=== PATIENT | female | born 1965 | race Caucasian/White ===

== ENCOUNTER 2020-09-15 09:01 | Outpatient (CLI) | payer OTHER, SELFPAY ==
--- NOTE | ~2020-09-15 | DEXA_ITS ---
Bone Density Report Name: Terra Abad Age: 55 Sex: Female Ethnicity: White Date of : 1965 Indication: postmenopausal; Referring Provider: Zelalem Blnacas Study: Bone densitometry was performed. Exam Date: September 15, 2020 Accession number: [id number] Bone Density: Region BMD T-score Z-score Classification AP Spine (L1-L4) 1.142 0.9 1.8 Normal Femoral Neck (Left) 0.835 -0.1 0.8 Normal Total Hip (Left) 1.045 0.8 1.5 Normal Total Hip Bilateral Avg 1.058 0.9 1.6 Normal Femoral Neck (Right) 0.873 0.2 1.2 Normal Total Hip (Right) 1.070 1.0 1.7 Normal World Health Organization criteria for BMD impression classify patients as: Normal (T-score at or above -1.0), Osteopenia (T-score between -1.0 and -2.5), or Osteoporosis (T-score at or below -2.5). 10-year Fracture Risk: FRAX not reported because: All T-scores for Spine Total, Hip Total, Femoral Neck at or above -1.0 Impression: The patient has normal bone mass. Discussion: BONE DENSITY IS ABOVE THE MINIMUM DESIRABLE LEVEL AT ALL SKELETAL SITES TESTED. This patient?s bone mineral density is above the minimum desirable level (T-score -1.0 or better) at all sites measured. The patient should follow a healthful lifestyle (good nutrition with adequate calcium and vitamin D, and appropriate weight-bearing exercise). Follow-Up: Consider repeating this study in 5 years or sooner if there is some new clinical indication. Reported by: [facility] on 09/15/2020 9:39:00 AM. Reviewed, dictated and finalized at location Paresh LATIF
--- NOTE | ~2020-09-15 | MM_ITS ---
EXAMINATION: MM screening [facility] BI w michelle HISTORY: Screening mammogram TECHNIQUE: Craniocaudal and mediolateral oblique 3-D tomosynthesis images were obtained and synthetic 2-D images were generated. CAD analysis was submitted and interpreted. COMPARISON: 09/24/2017, 09/11/2016, 04/22/2015 BREAST PARENCHYMAL COMPOSITION: The breasts are heterogeneously dense, which may obscure small masses . FINDINGS: There is no evidence of suspicious mass, calcification, or architectural distortion to sugg est malignancy in either breast. There has been no suspicious interval change. IMPRESSION: 1. No mammographic evidence of malignancy. 2. Recommend routine screening mammography in one year. BI-RADS Category 1: Negative Reviewed, dictated and finalized at location A. STERED DIETITIAN
== END 2020-09-15 09:02 | disposition home or self-care (01) ==
PROVIDERS: PCP Family Medicine; Visit Provider Physician Assistant
DX: Z12.31 Encounter for screening mammogram for malignant neoplasm of breast (principal); Z78.0 Asymptomatic menopausal state
CPT/HCPCS: 77063; 77067; 77080

== ENCOUNTER → 2021-05-08 15:18 | Outpatient (CLI) | payer OTHER, SELFPAY ==
--- NOTE | ~2021-05-08 | XR_ITS ---
XR lumbar spine 2-3V DATE: 05/08/2021 16:30 INDICATION: Back pain, radiculopathy TECHNIQUE: Standing AP, lateral, coned lateral lumbosacral views COMPARISON: None FINDINGS: Diffuse osteopenia. There is mild dextro scoliosis of the lower thoracic and lumbar spine. There is moderate degenerative disc disease at L4-5 and mild degenerative disc disease at L3-4. No fracture or bone destruction or spondylolisthesis is evident. The included lower thoracic and lumb ar pedicles are intact. The sacroiliac joints appear normal. IMPRESSION: Osteopenia Scoliosis Mild degenerative disc disease at L3-4, moderate degenerative disc disease at L4-5 Reviewed, dictated and finalized at location B. IMPRESSION: Osteopenia Scoliosis Mild degenerative disc disease at L3-4, moderate degenerative disc disease at L 4-5
== END ==
PROVIDERS: Visit Provider Physician Assistant
DX: M54.16 Radiculopathy, lumbar region (principal); M85.88 Other specified disorders of bone density and structure, other site; M41.9 Scoliosis, unspecified; M51.36 Other intervertebral disc degeneration, lumbar region
CPT/HCPCS: 72100

== ENCOUNTER 2021-09-15 00:32 | Day surgery (SDC) | payer OTHER, SELFPAY ==
[2021-09-06 15:47] VITALS: BMI 25.9
[2021-09-15 07:04] VITALS: BP 105/73; PULSE 70; RESP 20; TEMP 36.6; O2SAT 97; BMI 25.3
--- NOTE | 2021-09-15 07:24 | WPDGICN ---
Assessment and Plan Assessment and plan (1) Family history of colonic polyps: Code(s): Z83.71 - Family history of colonic polyps Status: Acute Assessment and Plan: Patient has a family history of colon polyps in her sister. Plan is for surveillance colonoscopy now and consider this at intervals in the future. Fiber supplementation may be benefit is some of her symptoms suggest a component of irritable bowel syndrome. GI Consult Note Consult date/time: 09/15/21 07:24 HPI: Terra Abad is a 56 year old female Presents for screening colonoscopy. Patient reports that her current weight appetite and bowel movements are normal. She denies abdominal pain. She has had no bleeding. Family history is significant that her sister had a large colon polyp requiring surgical resection. Patient's last colonoscopy was performed in 2014 with no findings at that time. Patient presents today for surveillance exam. Patient does notice some irregular stools and urgency with bowel habits. Review of Systems Review of Systems: All systems reviewed & are unremarkable except as noted in HPI and below PMFSH Family History Family History Father Diabetes mellitus Family history of hypercholesterolemia Family history of glaucoma Hypertension Family history of cardiovascular disease Sibling Diabetes mellitus Depression Family history of glaucoma Colon polyp Alcoholism Mother Family history of osteoporosis Family history of hypercholesterolemia Family history of mental disorder Cerebrovascular accident Family history of chronic obstructive pulmonary disease Depression Thyroid disorder Grandparent Hypertension Family history of cardiovascular disease Other Asthma Other Family history of bipolar disorder Family history of schizophrenia Social History Social History Smoking status: Never smoker Smoking end date: 10/28/88 Alcohol intake: current Drinks per week: 6 Alcohol use details: wine Substance use: never Substance use type: does not use Living arrangements: with family Spiritual care concerns: No Meds Home Medications and Allergies Home Medications Medication Instructions Recorded Confirmed Type albuterol sulfate 90 mcg/actuation 2 puff INHALATION Q4H PRN g 08/26/20 09/06/21 History aerosol inhaler calcium carbonate 1,200 mg PO DAILY 09/06/21 09/15/21 History cetirizine [Zyrtec] 10 mg PO DAILY 09/06/21 09/15/21 History cholecalciferol (vitamin D3) 2,000 mcg PO DAILY 09/06/21 09/15/21 History [Vitamin D3] diphenhydramine HCl [Benadryl] 50 mg PO DAILY 09/06/21 09/06/21 History fluticasone furoate-vilanterol 1 inh INHALATION BID PRN 09/06/21 09/15/21 History [Breo Ellipta] multivit with min-folic acid 1 tablet PO DAILY 09/06/21 09/15/21 History [Adult One Daily Multivitamin] Allergies Allergy/AdvReac Type Severity Reaction Status Date / Time erythromycin base Allergy Unknown Unknown Verified 09/15/21 07:02 Vital Signs Vital Signs - 24 hr 09/15/21 07:04 Temperature 97.9 F Pulse Rate 70 Respiratory Rate 20 Blood Pressure 105/73 Pulse Oximetry 97 Exam Narrative: Physical exam reveals patient be alert. Vital signs stable. HEENT exam is unremarkable. Patient is anicteric. Lungs are clear to auscultation and percussion. Heart is without murmur or extra sounds. Abdominal exam bowel sounds are present soft nontender with no organomegaly. Digital external rectal exam is normal.
[2021-09-15] MEDS: LACTATED RINGERS 1,000 ML 150 ML IV CONT (07:28)
--- NOTE | 2021-09-15 07:54 | WPDANESEPPF ---
Anes - Initial Pre Proc Eval Procedure: Operation Date: 09/15/21 08:00 Proposed Procedures p Screening Colonoscopy - Luis Alberto Hernandez MD Date/Time: 09/15/21 07:54 Surgeon: Luis Alberto Hernandez MD Pre Op Diagnosis: family hx of polyps Patient Data Age: 56 Gender: F Height: 1.68 m Weight: 71.3 kg Last Vital Signs Temp 97.9 F 09/15/21 07:04 Pulse 70 09/15/21 07:04 Resp 20 09/15/21 07:04 BP 105/73 09/15/21 07:04 Pulse Ox 97 09/15/21 07:04 Allergies Allergy/AdvReac Type Severity Reaction Status Date / Time erythromycin base Allergy Unknown Unknown Verified 09/15/21 07:02 Home Medications Medication Instructions Recorded Confirmed Type albuterol sulfate 90 mcg/actuation 2 puff INHALATION Q4H PRN g 08/26/20 09/06/21 History aerosol inhaler calcium carbonate 1,200 mg PO DAILY 09/06/21 09/15/21 History cetirizine [Zyrtec] 10 mg PO DAILY 09/06/21 09/15/21 History cholecalciferol (vitamin D3) 2,000 mcg PO DAILY 09/06/21 09/15/21 History [Vitamin D3] diphenhydramine HCl [Benadryl] 50 mg PO DAILY 09/06/21 09/06/21 History fluticasone furoate-vilanterol 1 inh INHALATION BID PRN 09/06/21 09/15/21 History [Breo Ellipta] multivit with min-folic acid 1 tablet PO DAILY 09/06/21 09/15/21 History [Adult One Daily Multivitamin] Patient hx anesthesia problems: none Family hx anesthesia problems: none Results Review: All pre-operative results and documents have been reviewed as part of the pre-operative evaluation. [facility] Past Medical History Medical History (Updated 09/15/21 @ 07:53 by Shan Haley MD) Mild intermittent asthma Family History Family History Father Diabetes mellitus Family history of hypercholesterolemia Family history of glaucoma Hypertension Family history of cardiovascular disease Sibling Diabetes mellitus Depression Family history of glaucoma Colon polyp Alcoholism Mother Family history of osteoporosis Family history of hypercholesterolemia Family history of mental disorder Cerebrovascular accident Family history of chronic obstructive pulmonary disease Depression Thyroid disorder Grandparent Hypertension Family history of cardiovascular disease Other Asthma Other Family history of bipolar disorder Family history of schizophrenia Social History Social History Smoking status: Never smoker Smoking end date: 10/28/88 Alcohol intake: current Drinks per week: 6 Alcohol use details: wine Substance use: never Substance use type: does not use Living arrangements: with family Spiritual care concerns: No Anes - Eval Final PreProcedure Day of Procedure 09/15/21 07:54 Patient weight: normal Heart: regular rate and rhythm Lungs: clear to auscultation Airway: Mallampati scale class II Neurological: alert and oriented Last oral intake: >/= 8 hours ASA classification: II Emergent: no Anesthetic plan: proceed Anesthesia type and monitoring: general GIVS and standard monitoring Results Review: All pre-operative results and documents have been reviewed as part of the pre-operative evaluation. Informed Consent: The patient's anesthetic plan and its attendant risks and benefits were discussed with the patient/family/POA. Questions were solicited and answers provided to the satisfaction of the patient/family/POA.
[2021-09-15 08:17] VITALS: BP 93/64; PULSE 71; RESP 21; O2SAT 96
[2021-09-15 08:27] VITALS: BP 98/68; PULSE 57; RESP 18; O2SAT 98
[2021-09-15 08:37] VITALS: BP 106/73; PULSE 58; RESP 20; O2SAT 99
== END 2021-09-15 08:47 | disposition home or self-care (01) ==
PROVIDERS: PCP Family Medicine; Visit Provider Internal Medicine Gastroenterology
PROC: 0DJD8ZZ Inspection of Lower Intestinal Tract, Via Natural or Artificial Opening Endoscopic (ICD-10-PCS; CPT 45378; principal; 2021-09-15 08:00)
DX: Z12.11 Encounter for screening for malignant neoplasm of colon (principal); K62.1 Rectal polyp; Z83.71 Family history of colonic polyps; K64.8 Other hemorrhoids; K57.30 Diverticulosis of large intestine without perforation or abscess without bleeding; Z79.51 Long term (current) use of inhaled steroids; J45.20 Mild intermittent asthma, uncomplicated
CPT/HCPCS: 45380; 88305; J2704; J7120

== ENCOUNTER 2022-01-17 10:00 | Outpatient (CLI) | payer OTHER, SELFPAY ==
--- NOTE | ~2022-01-17 | MM_ITS ---
EXAMINATION: MM screening [facility] BI w michelle HISTORY: Screening mammogram TECHNIQUE: Craniocaudal and mediolateral oblique 3-D tomosynthesis images were obtained and synthetic 2-D images were generated. CAD analysis was submitted and interpreted. COMPARISON: 09/15/2020, 09/24/2017, 09/11/2016 bilateral screening mammogram examinations BREAST PARENCHYMAL COMPOSITION: The breasts are heterogeneously dense, which may obscure small masses . FINDINGS: There is focal asymmetry in the posterior lower inner quadrant of the right breast. Diagnos tic right mammogram and right breast ultrasound examination are recommended. Otherwise there is no evidence of suspicious mass, calcification, or architectural distortion to sugg est malignancy in either breast. There has been no other suspicious interval change. IMPRESSION: 1. Focal asymmetry in posterior lower inner right breast 2. Diagnostic right mammogram and right breast ultrasound examination are recommended BI-RADS Category 0: Incomplete: Needs additional imaging evaluation. Reviewed, dictated and finalized at location A. IMPRESSION: 1. Focal asymmetry in posterior lower inner right breast 2. Diagnostic right mammogram and right breast ultrasound examination are recom mended BI-RADS Category 0: Incomplete: Needs additional imaging evaluation.
== END 2022-01-17 10:01 | disposition home or self-care (01) ==
PROVIDERS: PCP Family Medicine; Visit Provider Family Medicine
DX: Z12.31 Encounter for screening mammogram for malignant neoplasm of breast (principal); R92.8 Other abnormal and inconclusive findings on diagnostic imaging of breast
CPT/HCPCS: 77063; 77067

== ENCOUNTER 2022-01-26 14:01 | Outpatient (CLI) | payer OTHER, SELFPAY ==
--- NOTE | ~2022-01-26 | MMUS_ITS ---
EXAMINATION: MM diagnostic [facility] RT w michelle, US breast RT limited HISTORY: Focal asymmetry of the right breast on screening mammogram TECHNIQUE: Additional 3-D tomosynthesis images of the right breast were performed and synthetic 2-D i mages were generated. CAD analysis was submitted and interpreted. High resolution limited right breas t ultrasound was performed. COMPARISON: 01/17/2022, 09/15/2020, 09/24/2017 BREAST PARENCHYMAL COMPOSITION: There are scattered areas of fibroglandular density. FINDINGS: MAMMOGRAPHIC FINDINGS: There is a return to baseline fibroglandular appearance with spot compression of the right breast in the area questioned on screening mammogram. ULTRASOUND: There is no evidence of focal abnormal solid or cystic mass in the vicinity of the mammographic findi ng in question. IMPRESSION: 1. No mammographic or sonographic evidence of malignancy. 2. Recommend routine screening mammography in one year. BI-RADS Category 1: Negative Reviewed, dictated and finalized at location A. IMPRESSION: 1. No mammographic or sonographic evidence of malignancy. 2. Recommend routine screening mammography in one year. BI-RADS Category 1: Negative
== END 2022-01-26 14:02 | disposition home or self-care (01) ==
LOC: ANHIMG 14:01
PROVIDERS: PCP Family Medicine; Visit Provider Family Medicine
DX: R92.8 Other abnormal and inconclusive findings on diagnostic imaging of breast (principal)
CPT/HCPCS: 76642; 77061; 77065; G0279

== ENCOUNTER 2022-08-17 15:22 | Outpatient (CLI) | payer OTHER, SELFPAY ==
[2022-08-17 19:46] LABS: Alanine Aminotransferase 24 U/L (6-35); Albumin Level 4.7 g/dL (3.5-5.1); Alkaline Phosphatase 83 U/L (38-126); Amylase 91 U/L (30-110); Anion Gap 14 mmol/L (8-16); Aspartate Amino Transferase 29 U/L (14-36); Basophils Absolute Auto 0.1 K/mm3 (0.0-0.1); Basophils Percent Auto 0.7 % (0.2-1.2); Bilirubin,Total 0.3 mg/dL (0.2-1.3); Blood Urea Nitrogen 24 mg/dL (7-17); Calcium 9.5 mg/dL (8.4-10.2); Carbon Dioxide 23 mmol/L (22-30); Chloride 103 mmol/L (98-107); Eosinophils Absolute Auto 0.1 K/mm3 (0-0.3); Eosinophils Percent Auto 1.6 % (0-4.4); Estimated Glomerular Filt Rate > 60; Glucose 102 mg/dL (65-110); Hematocrit 43.5 % (37.0-47.0); Hemoglobin 14.6 g/dL (12.0-15.0); Immature Granulocyte Absolute 0.01 K/mm3 (0.00-0.031); Immature Granulocyte Percent A 0.1 % (0-0.5); Lipase 95 U/L (23-300); Lymphocytes Absolute Auto 2.46 K/mm3 (0.9-3.2); Lymphocytes Percent Auto 33.7 % (18.3-44.2); Mean Corpuscular HGB Conc 33.6 g/dl (32-36); Mean Corpuscular Hemoglobin 31.1 pg (26-34); Mean Corpuscular Volume 92.8 fl (80-100); Mean Platelet Volume 12.5 fl (7.4-10.4); Monocytes Absolute Auto 0.7 K/mm3 (0.1-0.6); Neutrophils Percent Auto 54.9 % (45.5-73.1); Platelet Count Result 182 k/mm3 (150-375); Potassium 4.1 mmol/L (3.4-5.0); Red Blood Count 4.69 M/mm3 (4.2-5.4); Red Cell Distribution Width 12.1 % (11.5-14.5); Sodium 140 mmol/L (137-145); White Blood Count 7.3 K/mm3 (4.5-10.0)
[2022-08-17 20:25] LABS: Hemoglobin A1C 5.6 % (<5.7)
== END 2022-08-17 15:23 | disposition home or self-care (01) ==
LOC: ANHGOSHLAB 15:23
PROVIDERS: PCP Family Medicine; Visit Provider Physician Assistant
DX: R53.83 Other fatigue (principal)
CPT/HCPCS: 36415; 80053; 82150; 83036; 83690; 84443; 85025

== ENCOUNTER 2023-05-06 13:54 | Outpatient (CLI) | payer OTHER, SELFPAY ==
--- NOTE | ~2023-05-06 | MM_ITS ---
EXAMINATION: MM screening [facility] BI w michelle HISTORY: Screening mammogram TECHNIQUE: Craniocaudal and mediolateral oblique 3-D tomosynthesis images were obtained and synthetic 2-D images were generated. CAD analysis was submitted and interpreted. COMPARISON: January 26, 2022 diagnostic right mammogram and limited right breast ultrasound examination January 17, 2022, September 15, 2020 bilateral screening mammogram examinations BREAST PARENCHYMAL COMPOSITION: The breasts are heterogeneously dense, which may obscure small masses . FINDINGS: There is no evidence of suspicious mass, calcification, or architectural distortion to sugg est malignancy in either breast. There has been no suspicious interval change. IMPRESSION: 1. No mammographic evidence of malignancy. 2. Recommend routine screening mammography in one year. BI-RADS Category 1: Negative Reviewed, dictated and finalized at location A.
== END 2023-05-06 13:55 | disposition home or self-care (01) ==
LOC: CHSIMG 13:57
PROVIDERS: PCP Family Medicine; Visit Provider Family Medicine
DX: Z12.31 Encounter for screening mammogram for malignant neoplasm of breast (principal)
CPT/HCPCS: 77063; 77067

== ENCOUNTER 2023-10-07 08:04 | Outpatient (CLI) | payer OTHER, SELFPAY ==
--- NOTE | 2023-10-07 08:56 | ECG_ITS ---
Measurements Intervals [place] Rate: 67 P: 71 [place]: 176 QRS: -2 QRSD: 90 T: 15 QT: 378 QTc: 402 Interpretive Statements SINUS RHYTHM WITH OCCASIONAL VENTRICULAR PREMATURE COMPLEXES LOW QRS VOLTAGE IN EXTREMITY LEADS [QRS DEFLECTION < 0.5 mV IN LIMB LEADS] POSSIBLE ANTERIOR MYOCARDIAL INFARCTION [30 ms Q WAVE IN V3/V4, OR R < 0.2 mV IN V4], PROBABLY OLD NONSPECIFIC ST AND T-WAVE ABNORMALITY ABNORMAL ECG NO PREVIOUS ECG AVAILABLE FOR COMPARISON Electronically Signed On 10-07-2023 12:48:06 WILTON WEAVER by Sukhdev Stewart M.D.
[2023-10-07 09:19] LABS: Basophils Percent Auto 0.3 % (0.2-1.2); Eosinophils Absolute Auto 0.1 K/mm3 (0-0.3); Eosinophils Percent Auto 1.5 % (0-4.4); Hematocrit 43.5 % (37.0-47.0); Hemoglobin 14.3 g/dL (12.0-15.0); Immature Granulocyte Absolute 0.02 K/mm3 (0.00-0.031); Immature Granulocyte Percent A 0.2 % (0-0.5); Lymphocytes Absolute Auto 1.66 K/mm3 (0.9-3.2); Lymphocytes Percent Auto 18.2 % (18.3-44.2); Mean Corpuscular HGB Conc 32.9 g/dl (32-36); Mean Corpuscular Hemoglobin 31.2 pg (26-34); Mean Platelet Volume 12.2 fl (7.4-10.4); Monocytes Absolute Auto 0.7 K/mm3 (0.1-0.6); Monocytes Percent Auto 7.3 % (2.6-8.5); Neutrophils Absolute Auto 6.6 K/mm3 (1.3-6.7); Neutrophils Percent Auto 72.5 % (45.5-73.1); Platelet Count Result 180 k/mm3 (150-375); Red Blood Count 4.58 M/mm3 (4.2-5.4); Red Cell Distribution Width 12.6 % (11.5-14.5); White Blood Count 9.1 K/mm3 (4.5-10.0)
[2023-10-07 09:32] LABS: Alanine Aminotransferase 19 U/L (6-35); Albumin Level 4.4 g/dL (3.5-5.1); Alkaline Phosphatase 82 U/L (38-126); Anion Gap 7 mmol/L (8-16); Aspartate Amino Transferase 24 U/L (14-36); Bilirubin,Total 0.7 mg/dL (0.2-1.3); Blood Urea Nitrogen 19 mg/dL (7-17); Calcium 9.3 mg/dL (8.4-10.2); Carbon Dioxide 28 mmol/L (22-30); Chloride 104 mmol/L (98-107); Estimated Glomerular Filt Rate > 60; Glucose 96 mg/dL (65-110); Potassium 3.9 mmol/L (3.4-5.0); Sodium 139 mmol/L (137-145)
[2023-10-07 09:39] LABS: INR 0.9; Prothrombin Time 12.5 Seconds (11.1-14.7)
[2023-10-07 09:40] LABS: Partial Thromboplastin Time 27.1 SECONDS (22.3-36.8)
== END 2023-10-07 08:05 | disposition home or self-care (01) ==
LOC: ANHSURGERY 08:07
PROVIDERS: PCP Family Medicine; Visit Provider Urology
DX: N81.4 Uterovaginal prolapse, unspecified (principal); Z01.818 Encounter for other preprocedural examination; R94.31 Abnormal electrocardiogram [ECG] [EKG]
CPT/HCPCS: 36415; 80053; 85025; 85610; 85730; 86850; 86900; 86901; 93005

== ENCOUNTER 2023-10-14 01:56 | Day surgery (SDC) | payer OTHER, SELFPAY ==
--- NOTE | 2023-10-07 08:36 | PC.NURSE ---
Report to the Outpatient Waiting Room, entrance under the green pavilion located off [facility], at time _0600 on date __10/14/23 . Planned Procedure Time: _0730 . Time changes happen often and if your time is changed the preop area will call you the afternoon before. - You and your visitor will be asked to self-screen and do not enter if you have any COVID symptoms. - A mask is optional within the hospital at this time. Patients may have clear liquids (water, carbonated beverages, clear teas, apple juice) until 3 hours prior to surgery with a maximum of 20 ounces. - No food from midnight until time of surgery - Infants may have breast milk until 4 hours before surgery, formula 6 hours prior to surgery. - Children will be allowed to drink immediately following surgery. If applicable, please bring a bottle or sippy cup to assist with drinking. Juice, water, soda, and popsicles are readily available. For infants on formula, please bring formula the day of surgery. Pacifiers are allowed. Take the following medications with a SIP of water the morning of surgery: __BREO INHALER DO NOT STOP ANY OF YOUR OTHER PRESCRIPTION MEDICATIONS PRIOR TO SURGERY ?EXCEPT THE FOLLOWING Medications to discontinue per physician __PT STATES HOLD ALL VITAMINS AND SUPPLEMENTS 7 DAYS PRE OP.LAST DOSE 10/06/23 Date to take last dose Please no make-up, nail mont[place], hairspray, perfume, deodorant, or body powder the day of surgery. No jewelry (including any body piercings) or valuables the day of surgery, leave them at home. Please take a shower or bath the night before, or the morning of, surgery with an antibacterial soap. Wear comfortable, loose fitting clothing. Children are encouraged to wear pajamas. - Jewelry must be removed prior to entering the operating room. Rings and piercings that are not removed may be cut off. - The hospital will not accept responsibility for valuables. - Please leave all valuables, including medications, at home the day of surgery. If you are going home after surgery, a licensed dedicated local truck driver must drive you home. - NO public transportation without another adult if you receive anesthesia. - We recommend that an adult stay with you for 24 hours following discharge. - We also recommend that you do not drive, make important decision, drink alcoholic beverages, or take any drugs that were not prescribed by your health care provider for at least 24 hours after your discharge time. For Pediatric surgeries, we recommend two adults accompany the child home. Follow any additional instructions given to you from your surgeon. If you or anyone in your household have experienced Covid symptoms in the past week, please notify your surgeon or the nurse liaison at the phone number below for possible testing. VERBAL AND WRITTEN instructions given to _PATIENT and asked if any additional questions and then verbalized understanding. Patient advised to call surgeon office or pre surgery nurse liaison [phone] if any additional questions.
[2023-10-07 08:56] VITALS: BP 108/78; PULSE 68; RESP 18; TEMP 36.5; O2SAT 97; BMI 27.1
--- NOTE | 2023-10-13 20:08 | PM.IMHP ---
H&P: HPI History of Present Illness Date/Time: 10/13/23 20:08 Chief Complaint: Prolapse Narrative: Terra is a 58yo [id number], who presents for surgery. She was diagnosed with uterine prolapse after moving her [place] tree. She continues to feel bothersome bulge symptoms and bladder issues. She denies any PMB. She has a normal pap smear 09/2022. [employer]IOR [employer]ESS [employer]INEER US 04/2023 showed a small uterus with 1 small fibroid measuring <2cm. 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 Has some JHOAN and OAB symptoms, but reports drinking quite a bit of coffee and holding her urine. Review of Systems Constitutional: Constitutional: Denies chills, Denies fever(s) and Denies headache(s) Eyes: Eyes: Denies change in vision ENT: Denies dizziness and Denies headache(s) Cardiovascular: Cardiovascular: Denies chest pain and Denies dyspnea Respiratory: Respiratory: Denies cough and Denies dyspnea Gastrointestinal: Gastrointestinal: Denies abdominal pain and Denies change in stool character Genitourinary: Genitourinary: Denies abnormal menses, Denies pelvic pain, Denies vaginal discharge, Denies vaginal odor and Denies vaginal pruritus Neurologic: Denies dizziness and Denies headache(s) Psychiatric: Psychiatric: Denies anxiety and Denies depression [facility] Past Medical History Medical History Mild intermittent asthma Surgical History Surgical History History of bunionectomy History of endometrial ablation Family History Family History Father Diabetes mellitus Family history of hypercholesterolemia Family history of glaucoma Hypertension Family history of cardiovascular disease Sibling Diabetes mellitus Depression Family history of glaucoma Colon polyp Alcoholism Mother Family history of osteoporosis Family history of hypercholesterolemia Family history of mental disorder Cerebrovascular accident Family history of chronic obstructive pulmonary disease Depression Thyroid disorder Grandparent Hypertension Family history of cardiovascular disease Other Asthma Other Family history of bipolar disorder Family history of schizophrenia Social History Social History (Updated 05/07/23 @ 10:51 by iCelo Shipley MA) Social History: Caffeine-coffee daily Smoking status: Never smoker Smoking end date: 10/28/88 Alcohol intake: current Drinks per week: 6 Alcohol use details: wine-weekends Substance use: never Substance use type: does not use Lack of Transportation: No Lack of Food: Never True Current Housing: I Have Housing Concerned About Future Housing: No Difficulty Paying Gas/Electric Bills: No Difficulty Paying for Meds: No Currently Unemployed: No Education: Bachelor's Degree Difficulty w/ Childcare or Family Care: No Living arrangements: with family Additional living arrangements comments: and daughter Occupation/Education: occupation Additional occupation/education comments: teacher Gender identity (if verbalized by the patient): Female Sexual Orientation (if Verbalized by the Patient): Straight or Heterosexual Spiritual care concerns: No Meds Home Medications and Allergies Home Medications Medication Instructions Recorded Confirmed Type albuterol sulfate 90 mcg/actuation 2 puff inhalation Q4H PRN 08/26/20 10/07/23 History aerosol inhaler Shortness Of Breath calcium carbonate 1,000 mg tablet 600 mg PO BID 09/06/21 10/07/23 History cetirizine 10 mg tablet (Zyrtec) 10 mg PO DAILY 09/06/21 10/07/23 History cholecalciferol (vitamin D3) 100 1,000 mcg PO DAILY 09/06/21 10/07/23 History mcg (4,000 unit) capsule psyllium husk 0.4 gram capsule 0.4 g PO DAILY 05/10/22 10/07/23 History (Metamucil) Lactobacillus 1 cap PO DAILY 10/07/23 10/07/23 History acidophilus-Bifidobac.a
--- NOTE | 2023-10-13 21:07 | PM.IMHP ---
H&P: HPI History of Present Illness Date/Time: 10/13/23 21:07 Chief Complaint: Incontinence and pelvic organ prolapse Narrative: 58-year-old with pelvic organ prolapse. Stress incontinence noted by history and urodynamics. Desires surgical correction Review of Systems Review of Systems: All systems reviewed & are unremarkable except as noted in HPI and below PMFSH Past Medical History Medical History Mild intermittent asthma Surgical History Surgical History History of bunionectomy History of endometrial ablation Family History Family History Father Diabetes mellitus Family history of hypercholesterolemia Family history of glaucoma Hypertension Family history of cardiovascular disease Sibling Diabetes mellitus Depression Family history of glaucoma Colon polyp Alcoholism Mother Family history of osteoporosis Family history of hypercholesterolemia Family history of mental disorder Cerebrovascular accident Family history of chronic obstructive pulmonary disease Depression Thyroid disorder Grandparent Hypertension Family history of cardiovascular disease Other Asthma Other Family history of bipolar disorder Family history of schizophrenia Social History Social History Social History: Caffeine-coffee daily Smoking status: Never smoker Smoking end date: 10/28/88 Alcohol intake: current Drinks per week: 6 Alcohol use details: wine-weekends Substance use: never Substance use type: does not use Lack of Transportation: No Lack of Food: Never True Current Housing: I Have Housing Concerned About Future Housing: No Difficulty Paying Gas/Electric Bills: No Difficulty Paying for Meds: No Currently Unemployed: No Education: Bachelor's Degree Difficulty w/ Childcare or Family Care: No Living arrangements: with family Additional living arrangements comments: and daughter Occupation/Education: occupation Additional occupation/education comments: teacher Gender identity (if verbalized by the patient): Female Sexual Orientation (if Verbalized by the Patient): Straight or Heterosexual Spiritual care concerns: No Meds Home Medications and Allergies Home Medications Medication Instructions Recorded Confirmed Type albuterol sulfate 90 mcg/actuation 2 puff inhalation Q4H PRN 08/26/20 10/07/23 History aerosol inhaler Shortness Of Breath calcium carbonate 1,000 mg tablet 600 mg PO BID 09/06/21 10/07/23 History cetirizine 10 mg tablet (Zyrtec) 10 mg PO DAILY 09/06/21 10/07/23 History cholecalciferol (vitamin D3) 100 1,000 mcg PO DAILY 09/06/21 10/07/23 History mcg (4,000 unit) capsule psyllium husk 0.4 gram capsule 0.4 g PO DAILY 05/10/22 10/07/23 History (Metamucil) Lactobacillus 1 cap PO DAILY 10/07/23 10/07/23 History acidophilus-Bifidobac.animalis 2.5 billion cell capsule (Daily Probiotic) acetaminophen 500 mg capsule 500 mg PO Q6H PRN Pain 10/07/23 10/07/23 History diphenhydramine HCl 25 mg capsule 25 mg PO HS PRN Insomnia 10/07/23 10/07/23 History (Benadryl) elderberry fruit 200 mg capsule 200 mg PO DAILY 10/07/23 10/07/23 History famotidine 20 mg tablet 20 mg PO DAILY 10/07/23 10/07/23 History fluticasone furoate 200 1 inh inhalation DAILY PRN 10/07/23 10/07/23 History mcg-vilanterol 25 mcg/dose Shortness Of Breath inhalation powder (Breo Ellipta) valacyclovir 1 gram tablet 2,000 mg PO PRN PRN FEVER BLISTER 10/07/23 10/07/23 History Allergies Allergy/AdvReac Type Severity Reaction Status Date / Time erythromycin base Allergy Intermediate Vomiting Verified 10/07/23 08:13 tetracycline Allergy Intermediate Vomiting Verified 10/07/23 08:13 nickel AdvReac Rash Verified 10/07/23 08:
[2023-10-14] VITALS (9 sets, daily range): BP systolic 95–126; BP diastolic 59–83; PULSE 53–86; RESP 12–20; TEMP 36.4–36.9; O2SAT 94–100
--- NOTE | 2023-10-14 06:48 | WPDANESEPPF ---
Anes - Initial Pre Proc Eval Procedure: Operation Date: 10/14/23 07:30 Proposed Procedures p Robotic Sacrocolpopexy, - Nick Lakhani MD s Urethral Sling, - Nick Lakhani MD s Robotic Assisted Laparoscopic Supracervical Hysterectomy with Bilateral Salpingectomy - Katey Lui MD Date/Time: 10/14/23 06:48 Surgeon: Nick Lakhani MD Pre Op Diagnosis: incomp uterovag prolapse, stress incont Patient Data Age: 58 Gender: F Height: 1.69 m Weight: 77.5 kg Last Vital Signs Temp 36.5 C 10/07/23 08:56 Pulse 68 10/07/23 08:56 Resp 18 10/07/23 08:56 BP 108/78 10/07/23 08:56 Pulse Ox 97 10/07/23 08:56 O2 Del Method Room Air 10/07/23 08:56 Allergies Allergy/AdvReac Type Severity Reaction Status Date / Time erythromycin base Allergy Intermediate Vomiting Verified 10/07/23 08:13 tetracycline Allergy Intermediate Vomiting Verified 10/07/23 08:13 nickel AdvReac Unknown Rash Verified 10/14/23 06:30 Home Medications Medication Instructions Recorded Confirmed Type albuterol sulfate 90 mcg/actuation 2 puff inhalation Q4H PRN 08/26/20 10/07/23 History aerosol inhaler Shortness Of Breath calcium carbonate 1,000 mg tablet 600 mg PO BID 09/06/21 10/14/23 History cetirizine 10 mg tablet (Zyrtec) 10 mg PO DAILY 09/06/21 10/14/23 History cholecalciferol (vitamin D3) 100 1,000 mcg PO DAILY 09/06/21 10/14/23 History mcg (4,000 unit) capsule psyllium husk 0.4 gram capsule 0.4 g PO DAILY 05/10/22 10/14/23 History (Metamucil) Lactobacillus 1 cap PO DAILY 10/07/23 10/14/23 History acidophilus-Bifidobac.animalis 2.5 billion cell capsule (Daily Probiotic) acetaminophen 500 mg capsule 500 mg PO Q6H PRN Pain 10/07/23 10/14/23 History diphenhydramine HCl 25 mg capsule 25 mg PO HS PRN Insomnia 10/07/23 10/14/23 History (Benadryl) elderberry fruit 200 mg capsule 200 mg PO DAILY 10/07/23 10/14/23 History famotidine 20 mg tablet 20 mg PO DAILY 10/07/23 10/14/23 History fluticasone furoate 200 1 inh inhalation DAILY PRN 10/07/23 10/14/23 History mcg-vilanterol 25 mcg/dose Shortness Of Breath inhalation powder (Breo Ellipta) valacyclovir 1 gram tablet 2,000 mg PO PRN PRN FEVER BLISTER 10/07/23 10/07/23 History Patient hx anesthesia problems: post op nausea/vomiting Family hx anesthesia problems: none Results Review: All pre-operative results and documents have been reviewed as part of the pre-operative evaluation. [facility] Past Medical History Medical History Mild intermittent asthma Surgical History Surgical History History of bunionectomy History of endometrial ablation Family History Family History Father Diabetes mellitus Family history of hypercholesterolemia Family history of glaucoma Hypertension Family history of cardiovascular disease Sibling Diabetes mellitus Depression Family history of glaucoma Colon polyp Alcoholism Mother Family history of osteoporosis Family history of hypercholesterolemia Family history of mental disorder Cerebrovascular accident Family history of chronic obstructive pulmonary disease Depression Thyroid disorder Grandparent Hypertension Family history of cardiovascular disease Other Asthma Other Family history of bipolar disorder Family history of schizophrenia Social History Social History Social History: Caffeine-coffee daily Smoking status: Never smoker Smoking end date: 10/28/88 Alcohol intake: current Drinks per week: 6 Alcohol use details: wine-weekends Substance use: never Substance use type: does not use Lack of Transportation: No Lack of Food: Never True Current Housing: I Have Housing Concerned About Future Housing: No Difficulty Pay
[2023-10-14] MEDS: ACETAMINOPHEN 500 MG TABLET 1000 MG PO (06:55)
[2023-10-14] MEDS: LACTATED RINGERS 1,000 ML 30 ML IV CONT ×2 (07:00→10:06)
[2023-10-14] MEDS: KETOROLAC 15 MG/ML VIAL (*BKC) IV PUSH ×3 (07:02→19:45)
[2023-10-14] MEDS: SCOPOLAMINE 1 MG PATCH 1 PATCH TRANSDERM (07:07)
--- NOTE | 2023-10-14 07:10 | WPDHPUPDATE1 ---
History and Physical Update Update Date/Time: 10/14/23 07:10 History and Physical has been reviewed, including an updated exam of the patient. There are NO changes in the patient's condition. Risks, benefits, and alternatives have been discussed and questions answered. Patient agrees to proceed with Robotic assisted-supracervical hysterectomy with bilateral salpingectomy.
--- NOTE | 2023-10-14 07:16 | WPDHPUPDATE1 ---
History and Physical Update Update Date/Time: 10/14/23 07:16 History and Physical has been reviewed, including an updated exam of the patient. There are NO changes in the patient's condition. Risks, benefits, and alternatives have been discussed and questions answered. Patient agrees to proceed with procedure.
[2023-10-14] MEDS: ceFAZolin 2 GM/D5W 50 ML 2 GM/50 ML BAG IVPB (07:28)
[2023-10-14] MEDS: metroNIDAZOLE 500 MG/ISO 100ML 500 MG/100 ML BAG 100 MG IVPB ×3 (07:28→23:17)
[2023-10-14] MEDS: BUPIVACAINE/EPINEPHRINE 0.5% 50 ML VIAL 40 ML INFILTRATE (08:09)
--- NOTE | 2023-10-14 08:25 | P.OP_ITS ---
Procedure Note - Detailed Date of Procedure 10/14/23 Pre-op Diagnosis incomp uterovag prolapse, stress incont Post-op Diagnosis Same Procedure Performed Robotic assisted supracervical hysterectomy with bilateral salpingectomy Surgeon Katey Lui MD Buffet Waiter/Waitress Luis Alberto Anesthesia General Findings small atrophic uterus, normal bilateral fallopian tubes and ovaries, small amount of adhesions noted from bladder to lower uterine segment. Good hemostasis at end of case. Description of Procedure Terra was taken to the operating room where she was placed under general anesthesia without issues. She received 2 g Ancef and 500mg Metronidazole. She was then prepped and draped in the usual sterile fashion in the dorsal lithotomy position with her legs in low Beau stirrups, her arms tucked at her side, with a strap over her chest. A time-out was performed with both Dr. Lakhani and I in the room. A horn catheter was placed by the technical account representative. Dr. Lakhani then scrubbed in and placed the 5 laparoscopic ports. The patient was then placed in steep Trendelenburg, with the legs slightly lowered. Dr. Lakhani then docked the robot and placed the instruments intra-abdominally under direct visualization. I then went to the robotic console and started my hysterectomy on the right side. The ureter was easily identified transperitoneally and well out of the surgical field. The fallopian tube was elevated and the mesosalpinx was coag ulated and transected. The round ligament was clamped, coagulated, and transected. The uterine ovarian artery was then serially clamped, coagulated, and transected with good hemostasis. The broad ligament was then dissected anteriorly and posteriorly skeletonizing the uterine artery. The bladder flap was then developed on the right side and carried around the left, anteriorly. The uterine artery was then serially clamped and coagulated. Once the vessel was adequately coagulated, it was then transected with good hemostasis. The same procedure was then performed on the left side without complications. The uterus was noted to be devascularized. The bladder flap was verified out of the surgical field and the uterus was transected from the cervix. The cervical stump had small bleeders that were coagulated, and good hemostasis was noted. The uterus and tubes were then placed within a bag. That was the completion of my surgery and Dr. Lakhani then started his surgery to repair the prolapse. EBL at the of my case was 5cc. Estimated Blood Loss 5 Pathology Yes (bilateral fallopian tubes and uterus) Complications No immediate complications Condition Stable Disposition No change [facility] Billing Surgery - Charge Forward: Surgery Billing
--- NOTE | 2023-10-14 10:02 | W.PM.PROC2 ---
Procedure Note - Detailed Date of Procedure 10/14/23 Pre-op Diagnosis incomp uterovag prolapse, stress incont Post-op Diagnosis Same Procedure Performed Robotic assisted laparoscopic sacral colpopexy Urethral sling Cystoscopy Surgeon Nick Lakhani MD Anesthesia General Indications a woman with uterine prolapse as well as stress incontinence. She desires surgical correction. She is here for the above. She understands risks of bleeding, infection, diskitis, damage to surrounding organs, bowel injury, bowel obstruction, mesh related complications including exposure and extrusion, postoperative voiding dysfunction including incontinence and retention, need for ancillary procedures, dyspareunia, recurrence of prolapse, and other perioperative intraoperative postoperative complications. She agrees to proceed. Findings See below Description of Procedure She was correctly identified. Informed consent obtained. She from the operating room. She was given general anesthesia. She was given appropriate perioperative antibiotics. She was placed a low lithotomy position. Pressure points were padded. A time-out performed. I marked out the skin 3 fingerbreadths cephalad to the umbilicus. I anesthetized the skin. I incised the skin. I dissected down to the fascia. I grasped the fascia with Yue clamps. I entered the fascia sharply in a Jacobs type technique. I placed sutures for later fascial closure. I placed a midline trocar. I examined the abdomen. There is no sign of any injury. Under direct vision I placed 2 additional trocars in the right upper quadrant and 2 additional trocars the left upper quadrant. She was placed in steep Trendelenburg. The robot was docked. Her decorator lighting fixtures completed their portion of the procedure. Please see that operative report for details. I then sat at the console. The Sizer in the vagina created plane on the anterior and posterior vaginal wall. I took great care not to injure the vagina, bladder, or rectum. I introduced the mesh into the abdomen. I sewed the anterior leaflet of mesh on the anterior vaginal wall. I sewed the posterior leaflet of mesh on the posterior vaginal wall. This was done with several sutures of 2 0 [place]-Phani. I reflected the colon laterally. I opened the posterior peritoneum over the sacral promontory. I carried this into the cul-de-sac. I freed up the edges for later retroperitonealization. I located the anterior longitudinal ligament the sacrum. I cleaned off all fatty tissues. I then tensioned my mesh appropriately. I did a vaginal exam the bedside. I assured prolapse reduction without undue tension. I then sewed the proximal leaflet of mesh onto the anterior longitudinal ligament of the sacrum with several sutures of 2 0 [place]-Phani. I then used a 2 0 Monocryl to completely and meticulously retroperitonealized all mesh. I allowed the colon to go back to its normal anatomic location. There is no sign of any impingement. The specimen was then removed. All ports removed. Fascia was tied down. Skin was closed with Monocryl and surgical glue. She was repositioned and prepped for urethral sling. I marked out the inner thigh incisions. I anesthetized the skin and made the incisions. I then anesthetized the anterior vaginal wall at the mid urethra. I made a 1 cm incision. I dissected out laterally taking great care not to injure the refilled vaginal wall. I passed the helical trocars. I did this 1st on the left and then on the right. This was done from the thigh incision towards the vaginal incision. Sling was connected to the trocars and brought out the thigh incision. I tensioned the sling appropriately. I cut and the plastic sheaths. I closed the incision with 2 0 Vicryl. I then performed cystoscopy. There was no tumors or surgical artifact. Both ureters were seen to excrete clear yellow urine. There is no surgical artifact in the bladder or urethra. I cut the ex
[2023-10-14] MEDS: HYDROmorphone HCL INJ (*CRX) 1 MG/ML SYR 0.5 MG IV PUSH ×2 (10:24→10:29)
--- NOTE | 2023-10-14 10:44 | SUR.PHASEI ---
1044: Simple mask removed.
--- NOTE | 2023-10-14 11:15 | ADMGEN ---
This patient, Terra Abad, was admitted to OB 2nd Floor Room 289-00. Patient/family oriented to hospital policies and general routines including ID bracelet, bed and alarms, visiting hours, pain management, procedures, bathroom and other care routines, personal items, smoking policy, room service/diet, and visiting hours. Information on how to activate the Rapid Response Team has been discussed. Patient/Family are encouraged to report perceived risks to care and to ask questions if they do not understand what they are told or what they should do.
[2023-10-14] MEDS: NALOXONE HCL 0.4 MG/ML VIAL 0.1 MG IV PUSH ×2 (11:55→12:03)
[2023-10-14] MEDS: KCL 20 MEQ/D5/0.45% SOD CHL 1,000 ML 100 ML IV CONT (12:14)
--- NOTE | 2023-10-14 12:30 | PC.NURSE ---
Patient called out saying she felt like she was having trouble breathing while she slept. Upon assessment patient respirations while sleeping were 6 per minute, pulse oximetry 95-100%, heart rate in the 50's. Narcan 0.1mg administered at 1155. Respirations improved to 9 per minute. Second dose of Narcan given at 1203. Respirations improved to [address] Lui on unit around 1230 and notified that this patient received Narcan twice for low respirations.
[2023-10-14] MEDS: ACETAMINOPHEN 325 MG TABLET 650 MG PO (13:15)
[2023-10-14] MEDS: ceFAZolin 1 GM/NS 50 ML 1 GM/50 ML BAG IVPB (16:05)
[2023-10-14] MEDS: HYDROcodone/acetaminophen (*CRX) 5-325 MG TABLET 1 TAB PO ×2 (17:05→20:42)
[2023-10-14] MEDS: SODIUM CHLORIDE 0.9% IV 250 ML 100 ML (23:17)
[2023-10-15 00:25] VITALS: BP 101/61; PULSE 60; RESP 14; TEMP 36.8; O2SAT 97
[2023-10-15] MEDS: ceFAZolin 1 GM/NS 50 ML 1 GM/50 ML BAG IVPB ×2 (00:25→08:58)
[2023-10-15] MEDS: HYDROcodone/acetaminophen (*CRX) 5-325 MG TABLET 1 TAB PO ×3 (00:58→10:54)
[2023-10-15] MEDS: KETOROLAC 15 MG/ML VIAL (*BKC) IV PUSH (04:20)
[2023-10-15 05:14] LABS: Hematocrit 36.6 % (37.0-47.0); Mean Corpuscular HGB Conc 32.8 g/dl (32-36); Mean Corpuscular Hemoglobin 30.8 pg (26-34); Mean Corpuscular Volume 94.1 fl (80-100); Mean Platelet Volume 11.5 fl (7.4-10.4); Platelet Count Result 213 k/mm3 (150-375); Red Blood Count 3.89 M/mm3 (4.2-5.4); Red Cell Distribution Width 12.5 % (11.5-14.5); White Blood Count 12.5 K/mm3 (4.5-10.0)
[2023-10-15 05:25] LABS: Anion Gap 5 mmol/L (8-16); Blood Urea Nitrogen 9 mg/dL (7-17); Calcium 8.3 mg/dL (8.4-10.2); Carbon Dioxide 25 mmol/L (22-30); Chloride 105 mmol/L (98-107); Estimated CRCL calculation 85 ml/min; Estimated Glomerular Filt Rate > 60; Glucose 94 mg/dL (65-110); Potassium 3.8 mmol/L (3.4-5.0); Sodium 135 mmol/L (137-145)
--- NOTE | 2023-10-15 06:45 | PM.GYNPNOP ---
INTERMODAL TRUCK DRIVER - A/P Assessment and plan (1) S/P laparoscopic hysterectomy: Code(s): Z90.710 - Acquired absence of both cervix and uterus Status: Acute Postoperative Procedures: Procedures Operation Date: 10/14/23 07:30 Actual Procedure Side Surgeon p Robotic Sacrocolpopexy, Nick Lakhani MD s Urethral Sling, Nick Lakhani MD s Robotic Assisted Laparoscopic Supracervical Hysterectomy with Bilateral Salpingectomy Katey Lui MD Postoperative day: 1 Postoperative status: doing well Postoperative plan: routine post-op care, voiding trials and discharge Time Spent With Patient Time: Total time spent is greater than 50% in coordination of care (as documented) at patient's floor/unit and/or counseling patient: Time with patient: less than 15 minutes INTERMODAL TRUCK DRIVER- PN:Subj Post-Op Subjective Date/time seen: 10/15/23 06:45 Interval history: POD#1 Terra reports doing well today. No issues overnight. Her pain is controlled with PO meds. She has tolerated regular diet. She has a small amount of vaginal bleeding. [place] was removed, she has not voided yet. She has not passed flatus yet. She has ambulated and denies any symptoms of anemia. Review of Systems Review of Systems: All systems reviewed & are unremarkable except as noted in HPI and below (HPI) Constitutional: Constitutional: Denies chills, Denies fever(s) and Denies headache(s) Eyes: Eyes: Denies change in vision ENT: Denies dizziness and Denies headache(s) Cardiovascular: Cardiovascular: Denies chest pain and Denies rapid heart rate Respiratory: Respiratory: Denies cough Genitourinary: Genitourinary: Denies abnormal vaginal bleeding Neurologic: Denies dizziness and Denies headache(s) Exam Const: General: cooperative, healthy appearing, comfortable and no acute distress Orientation/consciousness: patient oriented x3 Resp: Effort & Inspection: normal respiratory effort Auscultation: clear to auscultation bilaterally Cardio: Rate: regular rate GI: Inspection: normal to inspection and incision (5 LSC incisions ) GI Palp: Yes abdominal tenderness (appropriate) and Yes Soft to palpation Auscultation: normal bowel sounds : Other: normal bleeding on pad Skin: General skin exam: normal color Neuro: General: patient oriented x3 Psych: Appearance: grossly normal Affect: normal affect Attitude: cooperative INTERMODAL TRUCK DRIVER - PN: Obj Data Vital Signs Vital Signs: Vital Signs - 24 hr 10/14/23 10:06 10/14/23 10:20 10/14/23 10:35 Temperature 97.8 F Pulse Rate 86 60 62 Respiratory Rate 12 12 12 Blood Pressure 126/81 113/83 113/73 Pulse Oximetry 100 100 100 Oxygen Delivery Simple Face Mask Simple Face Mask Simple Face Mask Oxygen Flow Rate 6 8 8 10/14/23 10:50 10/14/23 11:05 10/14/23 11:30 Temperature 97.9 F Pulse Rate 70 57 L 53 L Respiratory Rate 14 16 12 Blood Pressure 101/66 99/66 L 99/65 L Pulse Oximetry 99 99 99 Oxygen Delivery Room Air Room Air Oxygen Flow Rate 10/14/23 11:30 10/14/23 16:00 10/14/23 16:00 Temperature 98.5 F Pulse Rate 67 Respiratory Rate 16 Blood Pressure 98/67 L Pulse Oximetry 97 Oxygen Delivery Room Air Room Air Oxygen Flow Rate 10/14/23 20:45 10/15/23 00:25 Temperature 98.4 F 98.2 F Pulse Rate 66 60 Respiratory Rate 16 14 Blood Pressure 95/59 L 101/61 Pulse Oximetry 94 97 Oxygen Delivery Oxygen Flow Rate Intake/Output Intake/Output: Intake & Output 10/12/23 10/13/23 10/14/23 10/15/23 23:59 23:59 23:59 23:59 Intake Total 2500 950 Output Total 2350 1400 Balance 150 -450 Meds/Results Medications: Active Medications Generic Name Dose Route Start Last Admin Trade Name Freq PRN Reason Stop Dose Admin Acetaminophen 1,000 mg 10/14/23 16:42 Acetaminophen 500 Mg Tablet PO Q6H PRN Mild Pain (1-3) or Fever Hydrocodone Bitart/Acetaminophen 1 tab 10/14/23 11:12 10/15/23 05:42 Hydrocodone/Acetaminophen (*Crx) 5-32
[2023-10-15] MEDS: metroNIDAZOLE 500 MG/ISO 100ML 500 MG/100 ML BAG 100 MG IVPB (07:23)
[2023-10-15 08:24] VITALS: BP 90/58; PULSE 54; RESP 18; TEMP 36.6; O2SAT 97
[2023-10-15 08:49] VITALS: BP 92/52; PULSE 71; RESP 16; TEMP 36.8; O2SAT 100
[2023-10-15] MEDS: DOCUSATE SODIUM 100 MG CAPSULE PO (09:00)
[2023-10-15] MEDS: ENOXAPARIN 30 MG/0.3 ML SYRINGE SUB-Q (09:00)
[2023-10-15] MEDS: FAMOTIDINE 20 MG TABLET PO (09:00)
[2023-10-15] MEDS: LORATADINE 10 MG TABLET PO (09:00)
== END 2023-10-15 11:25 | disposition home or self-care (01) ==
LOC: ANHSURGERY 07:14 → ANHOB2 11:16
PROVIDERS: Obstetrics & Gynecology; PCP Family Medicine; Visit Provider Urology
PROC: (CPT 57425; principal; 2023-10-14 07:30)
PROC: (CPT 57425; 2023-10-14 07:30)
PROC: 0UT94ZZ Resection of Uterus, Percutaneous Endoscopic Approach (ICD-10-PCS; CPT 57425; 2023-10-14 07:30)
DX: N81.4 Uterovaginal prolapse, unspecified (principal); N39.3 Stress incontinence (female) (male); D25.9 Leiomyoma of uterus, unspecified; N73.6 Female pelvic peritoneal adhesions (postinfective); B00.1 Herpesviral vesicular dermatitis; J45.20 Mild intermittent asthma, uncomplicated; G47.00 Insomnia, unspecified; F10.90 Alcohol use, unspecified, uncomplicated; Z79.51 Long term (current) use of inhaled steroids; Z79.1 Long term (current) use of non-steroidal anti-inflammatories (NSAID)
CPT/HCPCS: 58542; 57425; 57288; S2900 ×2; 36415; 80048; 80053; 85025; 85027; 85610; 85730; 86850; 86900; 86901; 88307; 93005; 99199; A9270; C1771; C1781; J0690; J1100; J1170; J1650; J1836; J1885; J2250; J2310; J2405; J2704; J3010; J3480; J7030; J7050; J7120

== ENCOUNTER 2024-07-28 15:13 | Outpatient (CLI) | payer OTHER, SELFPAY ==
--- NOTE | ~2024-07-28 | MM_ITS ---
EXAMINATION: MM screening katharina BI w michelle HISTORY: Screening TECHNIQUE: Craniocaudal and mediolateral oblique 3-D tomosynthesis images were obtained and synthetic 2-D images were generated. CAD analysis was submitted and interpreted. COMPARISON: Comparison to multiple prior studies sequentially, with oldest reviewed study dated 08/28. BREAST PARENCHYMAL COMPOSITION: Dense: The breasts are heterogeneously dense, which may obscure small masses FINDINGS: There is no evidence of suspicious mass, calcification, or architectural distortion to sugg est malignancy in either breast. There has been no suspicious interval change. IMPRESSION: 1. No mammographic evidence of malignancy. 2. Recommend routine screening mammography in one year. BI-RADS Category 1: Negative Reviewed, dictated and finalized at location B.
== END 2024-07-28 15:14 | disposition home or self-care (01) ==
LOC: ANHIMG 15:13
PROVIDERS: PCP Family Medicine; Visit Provider Family Medicine
DX: Z12.31 Encounter for screening mammogram for malignant neoplasm of breast (principal)
CPT/HCPCS: 77063; 77067

== ENCOUNTER 2024-08-14 16:03 | Emergency (ER) | payer OTHER, SELFPAY ==
[2024-08-14 16:15] VITALS: BP 116/93; PULSE 74; RESP 16; TEMP 36.3; O2SAT 99
--- NOTE | 2024-08-14 16:19 | ED.GENADULT ---
HPI - General Adult General Chief complaint: Urogenital-Female Stated complaint: Urine Irritation Time Seen by Provider: 08/14/24 16:19 Source: patient, RN notes reviewed and old records reviewed Mode of arrival: ambulatory Limitations: no limitations History of Present Illness HPI narrative: 59-year-old female to [facility] complaint of lower abdominal discomfort and pressure as well as urinary urgency and frequency since yesterday. Patient reports taking a bubble bath on Saturday night and is concerned that this was the cause for her symptoms. Patient reports history hysterectomy sling placement in September of year. Patient states that she has 3 urinary tract infections this year so far which is very atypical for her. Patient reports it last UTI was January and that it took 3 different antibiotics to finally resolve her symptoms. Patient denies nausea, fever. Patient reports treating symptoms at home with cranberry pills and ibuprofen with some relief. Patient states that she has also increased her water intake since her symptoms began. Patient sitting comfortably in exam room in no acute distress. Related Data Home Medications Medication Instructions Recorded Confirmed calcium carbonate 1,000 mg tablet 600 mg PO BID 09/06/21 08/14/24 cetirizine 10 mg tablet (Zyrtec) 10 mg PO DAILY 09/06/21 08/14/24 cholecalciferol (vitamin D3) 100 1,000 mcg PO DAILY 09/06/21 08/14/24 mcg (4,000 unit) capsule psyllium husk 0.4 gram capsule 0.4 g PO DAILY 05/10/22 08/14/24 (Metamucil) Lactobacillus 1 cap PO DAILY 10/07/23 08/14/24 acidophilus-Bifidobac.animalis 2.5 billion cell capsule (Daily Probiotic) diphenhydramine HCl 25 mg capsule 25 mg PO HS PRN Insomnia 10/07/23 08/14/24 (Benadryl) elderberry fruit 200 mg capsule 200 mg PO DAILY 10/07/23 08/14/24 famotidine 20 mg tablet 20 mg PO DAILY 10/07/23 08/14/24 valacyclovir 1 gram tablet 2,000 mg PO PRN PRN FEVER BLISTER 10/07/23 08/14/24 multivitamin (Daily Multi-Vitamin 1 tablet PO DAILY 08/14/24 08/14/24 tablet) Allergies Allergy/AdvReac Type Severity Reaction Status Date / Time nickel Allergy Unknown Rash Verified 08/14/24 16:11 erythromycin base AdvReac Intermediate Vomiting Verified 08/14/24 16:11 tetracycline AdvReac Intermediate Vomiting Verified 08/14/24 16:11 Review of Systems Review of Systems: All systems reviewed & are unremarkable except as noted in HPI and below Constitutional: Constitutional: Reports no additional constitutional complaints Eyes: Eyes: Reports no additional eye complaints ENT: Reports system reviewed and no additional complaints, except as documented Cardiovascular: Cardiovascular: Reports no additional cardiovascular complaints, Denies chest pain and Denies dyspnea Respiratory: Respiratory: Reports no additional respiratory complaints, Denies cough and Denies dyspnea Musculoskeletal: Musculoskeletal: Reports no additional musculoskeletal complaints Neurologic: Reports system reviewed and no additional complaints, except as documented Psychiatric: Psychiatric: Reports no additional psychiatric complaints PMFSH Past Medical History Medical History Mild intermittent asthma Uterine prolapse Surgical History Surgical History History of bunionectomy History of endometrial ablation History of robot-assisted laparoscopic hysterectomy (10/14/23) Robotic assisted supracervical hysterectomy with bilateral salpingectomy.ovaries intact. cervix intact S/P ACL repair february 2023/ acl and meniscus/ r knee S/P laparoscopic hysterectomy S/P sacrocolpopexy (10/14/23) Robotic assisted laparoscopic sacral colpopexy Urethral sling Cystoscopy Family History Family History Father Diabetes mellitus Family history of hypercholesterolemia Family history of glaucoma Hypertension Fam
[2024-08-14 16:25] LABS: EDUAAPPEAR Cloudy; EDUABILI Negative (Negative); EDUABLOOD 2+ (Negative); EDUACOLOR1 Yellow; EDUAGLUCOSE Negative (Negative); EDUAKETONE Negative (Negative); EDUALEUKO 2+ (Negative); EDUANITRATE Negative (Negative); EDUAPROTEIN Negative (Negative); EDUAUROBILI 0.2
== END 2024-08-14 16:48 | disposition home or self-care (01) ==
PROVIDERS: Emergency Provider Nurse Practitioner Family; PCP Family Medicine
DX: N39.0 Urinary tract infection, site not specified (principal); Z79.899 Other long term (current) drug therapy
CPT/HCPCS: 81003; 87077; 87086; 87186; 99213; G0463

== ENCOUNTER 2025-04-22 00:53 | Day surgery (SDC) | payer OTHER, SELFPAY ==
[2025-04-06 11:18] VITALS: BMI 26.9
--- NOTE | 2025-04-22 07:39 | P.PNAN_ITS ---
Anes - Initial Pre Proc Eval Procedure: Operation Date: 04/22/25 09:30 Proposed Procedures p Esophagogastroduodenoscopy - Patrick Robins MD Date/Time: 04/22/25 07:39 Surgeon: Patrick Robins MD Pre Op Diagnosis: GERD Patient Data Age: 60 Gender: F Height: 1.68 m Weight: 75.8 kg Allergies Allergy/AdvReac Type Severity Reaction Status Date / Time nickel Allergy Unknown Rash Verified 04/22/25 08:10 erythromycin base AdvReac Intermediate Vomiting Verified 04/22/25 08:10 tetracycline AdvReac Intermediate Vomiting Verified 04/22/25 08:10 Home Medications ?Medication ?Instructions ?Recorded ?Confirmed ?Type calcium carbonate 1,000 mg tablet 600 mg PO BID 09/06/21 04/22/25 History cetirizine 10 mg tablet (Zyrtec) 10 mg PO DAILY 09/06/21 04/22/25 History cholecalciferol (vitamin D3) 100 1,000 mcg PO DAILY 09/06/21 04/22/25 History mcg (4,000 unit) capsule psyllium husk 0.4 gram capsule 0.4 g PO DAILY 05/10/22 04/22/25 History (Metamucil) Lactobacillus 1 cap PO DAILY 10/07/23 04/22/25 History acidophilus-Bifidobac.animalis 2.5 billion cell capsule (Daily Probiotic) diphenhydramine HCl 25 mg capsule 25 mg PO HS PRN Insomnia 10/07/23 04/09/25 History (Benadryl) elderberry fruit 200 mg capsule 200 mg PO DAILY 10/07/23 04/22/25 History famotidine 20 mg tablet 20 mg PO DAILY 10/07/23 04/22/25 History valacyclovir 1 gram tablet 2,000 mg PO PRN PRN FEVER BLISTER 10/07/23 04/09/25 History albuterol sulfate 90 mcg/actuation 2 puff inhalation Q4H PRN 03/10/24 04/09/25 Rx aerosol inhaler Shortness Of Breath #8.5 grams fluticasone furoate 200 1 inh inhalation DAILY PRN 03/10/24 04/09/25 Rx mcg-vilanterol 25 mcg/dose Shortness Of Breath #60 ea inhalation powder (Breo Ellipta) multivitamin (Daily Multi-Vitamin 1 tablet PO DAILY 08/14/24 04/22/25 History tablet) lysine 500 mg tablet 500 mg PO DAILY 03/10/25 04/22/25 History phentermine 15 mg capsule 15 mg PO DAILY #30 caps 04/09/25 04/22/25 Rx Patient hx anesthesia problems: none Family hx anesthesia problems: none Results Review: All pre-operative results and documents have been reviewed as part of the pre- operative evaluation. [facility] Past Medical History Medical History (Updated 04/22/25 @ 07:40 by Connor Ward, ) PONV (postoperative nausea and vomiting) GERD (gastroesophageal reflux disease) Asthma Herpes simplex labialis Uterine prolapse Mild intermittent asthma Surgical History Surgical History S/P ACL repair february 2023/ acl and meniscus/ r knee S/P sacrocolpopexy (10/14/23) Robotic assisted laparoscopic sacral colpopexy Urethral sling Cystoscopy History of robot-assisted laparoscopic hysterectomy (10/14/23) Robotic assisted supracervical hysterectomy with bilateral salpingect mary.ovaries intact. cervix intact S/P laparoscopic hysterectomy History of bunionectomy History of endometrial ablation Family History Family History Father Diabetes mellitus Family history of hypercholesterolemia Family history of glaucoma Hypertension Family history of cardiovascular disease Sibling Diabetes mellitus Depression Family history of glaucoma Colon polyp Alcoholism Mother Family history of osteoporosis Family history of hypercholesterolemia Family history of mental disorder Cerebrovascular accident Family history of chronic obstructive pulmonary disease Depression Thyroid disorder Grandparent Hypertension Family history of cardiovascular disease Other Asthma Other Family history of bipolar disorder Family history of schizophrenia Social History Social History Social History: Caffeine-coffee daily Smoking status: Never smoker Smoking end date: 10/28/88 Alcohol intake: current Drinks per week: 6 Alcohol use details: wine-weekends Substance use: never Substance use type: does not use Current Housing: Decline to Answer Concerned About Future Housing: Decline to Answer Difficulty Paying Gas/Electric Bills: Decline to Answer Difficulty Paying for Meds: Decline to Answer Currently Unemployed: Decline to Answer Education: Decline to Answer Difficulty w/ Childcare or Family Care: Decline to Answer Living arrangements: with family Additional living arrangements comments: and daughter Occupation/Education: occupation Additional occupation/education comments: teacher Gender identity (if verbalized by the patient): Female Sexual Orientation (if Verbalized by the Patient): Straight or Heterosexual Spiritual care concerns: No Anes - Eval Final PreProcedure Day of Procedure 04/22/25 07:39 Patient weight: overweight Heart: regular rate and rhythm Lungs: clear to auscultation Airway: Mallampati scale class II Neurological: alert and oriented Last oral intake: >/= 8 hours ASA classification: II Emergent: no Anesthetic plan: proceed Anesthesia type and monitoring: general GIVS and standard monitoring Results Review: All pre-operative results and documents have been reviewed as part of the pre- operative evaluation. Informed Consent: The patient's anesthetic plan and its attendant risks and benefits were discussed with the patient/family/POA. Questions were solicited and answers provided to the satisfaction of the patient/family/POA.
[2025-04-22 08:12] VITALS: BP 104/68; PULSE 65; RESP 14; TEMP 36; O2SAT 98
[2025-04-22] MEDS: LACTATED RINGERS 1,000 ML 150 ML IV CONT (08:21)
[2025-04-22] MEDS: SIMETHICONE ORAL SUSPENSION 20 MG/0.3 ML 30 ML BOTTLE 1.8 ML PO (08:22)
--- NOTE | 2025-04-22 08:54 | PM.IMHP ---
H&P: HPI History of Present Illness Date/Time: 04/22/25 08:54 Chief Complaint: GERD Narrative: the patient has has been suffering from GERD for several years, is lately complaining of excessive eructation. There is occasional dysphagia. She takes famotidine 20 mg twice a day. She is afraid to take any PPIs because she has read an association with dementia. Review of Systems Review of Systems: All systems reviewed & are unremarkable except as noted in HPI and below PMFSH Past Medical History Medical History (Updated 04/22/25 @ 07:40 by Connor Ward, ) PONV (postoperative nausea and vomiting) GERD (gastroesophageal reflux disease) Asthma Herpes simplex labialis Uterine prolapse Mild intermittent asthma Surgical History Surgical History S/P ACL repair february 2023/ acl and meniscus/ r knee S/P sacrocolpopexy (10/14/23) Robotic assisted laparoscopic sacral colpopexy Urethral sling Cystoscopy History of robot-assisted laparoscopic hysterectomy (10/14/23) Robotic assisted supracervical hysterectomy with bilateral salpingectomy.ovaries intact. cervix intact S/P laparoscopic hysterectomy History of bunionectomy History of endometrial ablation Family History Family History Father Diabetes mellitus Family history of hypercholesterolemia Family history of glaucoma Hypertension Family history of cardiovascular disease Sibling Diabetes mellitus Depression Family history of glaucoma Colon polyp Alcoholism Mother Family history of osteoporosis Family history of hypercholesterolemia Family history of mental disorder Cerebrovascular accident Family history of chronic obstructive pulmonary disease Depression Thyroid disorder Grandparent Hypertension Family history of cardiovascular disease Other Asthma Other Family history of bipolar disorder Family history of schizophrenia Social History Social History Social History: Caffeine-coffee daily Smoking status: Never smoker Smoking end date: 10/28/88 Alcohol intake: current Drinks per week: 6 Alcohol use details: wine-weekends Substance use: never Substance use type: does not use Current Housing: Decline to Answer Concerned About Future Housing: Decline to Answer Difficulty Paying Gas/Electric Bills: Decline to Answer Difficulty Paying for Meds: Decline to Answer Currently Unemployed: Decline to Answer Education: Decline to Answer Difficulty w/ Childcare or Family Care: Decline to Answer Living arrangements: with family Additional living arrangements comments: and daughter Occupation/Education: occupation Additional occupation/education comments: teacher Gender identity (if verbalized by the patient): Female Sexual Orientation (if Verbalized by the Patient): Straight or Heterosexual Spiritual care concerns: No Meds Home Medications and Allergies Home Medications ?Medication ?Instructions ?Recorded ?Confirmed ?Type calcium carbonate 1,000 mg tablet 600 mg PO BID 09/06/21 04/22/25 History cetirizine 10 mg tablet (Zyrtec) 10 mg PO DAILY 09/06/21 04/22/25 History cholecalciferol (vitamin D3) 100 1,000 mcg PO DAILY 09/06/21 04/22/25 History mcg (4,000 unit) capsule psyllium husk 0.4 gram capsule 0.4 g PO DAILY 05/10/22 04/22/25 History (Metamucil) Lactobacillus 1 cap PO DAILY 10/07/23 04/22/25 History acidophilus-Bifidobac.animalis 2.5 billion cell capsule (Daily Probiotic) diphenhydramine HCl 25 mg capsule 25 mg PO HS PRN Insomnia 10/07/23 04/09/25 History (Benadryl) elderberry fruit 200 mg capsule 200 mg PO DAILY 10/07/23 04/22/25 History famotidine 20 mg tablet 20 mg PO DAILY 10/07/23 04/22/25 History valacyclovir 1 gram tablet 2,000 mg PO PRN PRN FEVER BLISTER 10/07/23 04/09/25 History albuterol sulfate 90 mcg/actuation 2 puff inhalation Q4H PRN 03/10/24 04/09/25 Rx aerosol inhaler Shortness Of Breath #8.5 grams fluticasone furoate 200 1 inh inhalation DAILY PRN 03/10/24 04/09/25 Rx mcg-vilanterol 25 mcg/dose Shortness Of Breath #60 ea inhalation powder (Breo Ellipta) multivitamin (Daily Multi-Vitamin 1 tablet PO DAILY 08/14/24 04/22/25 History tablet) lysine 500 mg tablet 500 mg PO DAILY 03/10/25 04/22/25 History phentermine 15 mg capsule 15 mg PO DAILY #30 caps 04/09/25 04/22/25 Rx Allergies Allergy/AdvReac Type Severity Reaction Status Date / Time nickel Allergy Unknown Rash Verified 04/22/25 08:10 erythromycin base AdvReac Intermediate Vomiting Verified 04/22/25 08:10 tetracycline AdvReac Intermediate Vomiting Verified 04/22/25 08:10 Vital Signs Vital Signs - 24 hr 04/22/25 08:12 Temperature 96.8 F L Pulse Rate 65 Respiratory Rate 14 Blood Pressure 104/68 Pulse Oximetry 98 Oxygen Delivery Room Air Exam Const: General: cooperative and healthy appearing Resp: Effort & Inspection: normal respiratory effort and able to speak in complete sentences Auscultation: clear to auscultation bilaterally Cardio: Rate: regular rate Rhythm: regular rhythm GI: Inspection: normal to inspection GI Palp: No No hepatosplenomegaly present Auscultation: normal bowel sounds Rectal Exam: deferred Skin: General skin exam: normal color Psych: Appearance: grossly normal Mental Status: mental status grossly normal Assessment and Plan Assessment and plan (1) Chronic GERD: Code(s): K21.9 - Gastro-esophageal reflux disease without esophagitis Status: Acute Assessment and Plan: The patient is deemed a good candidate for the procedure. Consent signed. Will proceed.
--- NOTE | 2025-04-22 09:05 | S_PTH ---
PATIENT: Terra Abad LOC: [facility] U#:[id number] AGE/SX: 60/F ROOM: RE04/22/[address]: Patrick Robins MD : 1965 BED: DIS: 04/22/2025 SPEC #: [id number] RECD: 04/22/25 10:21 STATUS: JUSTYN RETammy #: [id number] CARLOS: 04/22/25 09:[address]: Patrick Robins DEPT: [facility] Surgical RECD BY: Kerry Lindsey ENTERED: 04/22/25 10:22 SP TYPE: Surgical OTHR DR: Rosa Sheikh MD Tissues: A - Gastric Biopsy B - Gastric Biopsy Procedures: Hematoxylin and Eosin Stain Gross and Microscopic Level 4
[2025-04-22 09:10] VITALS: BP 104/71; PULSE 69; RESP 15; O2SAT 99
[2025-04-22 09:20] VITALS: BP 106/74; PULSE 56; RESP 19; O2SAT 99
[2025-04-22 09:30] VITALS: BP 116/78; PULSE 58; RESP 20; O2SAT 99
== END 2025-04-22 09:39 | disposition home or self-care (01) ==
PROVIDERS: PCP Family Medicine; Referring Provider Student in an Organized Health Care Education/Training Program; Visit Provider Internal Medicine Gastroenterology
PROC: 0DJ08ZZ Inspection of Upper Intestinal Tract, Via Natural or Artificial Opening Endoscopic (ICD-10-PCS; CPT 43239; principal; 2025-04-22 09:30)
DX: K21.9 Gastro-esophageal reflux disease without esophagitis (principal); K29.30 Chronic superficial gastritis without bleeding; J45.909 Unspecified asthma, uncomplicated; Z79.51 Long term (current) use of inhaled steroids; Z98.890 Other specified postprocedural states; Z98.891 History of uterine scar from previous surgery; Z87.42 Personal history of other diseases of the female genital tract; Z83.719 Family history of colon polyps, unspecified; Z82.49 Family history of ischemic heart disease and other diseases of the circulatory system
CPT/HCPCS: 43239; 88305; J2003; J2704; J7120

== ENCOUNTER 2025-08-02 13:57 | Outpatient (CLI) | payer OTHER, SELFPAY ==
--- NOTE | ~2025-08-02 | MM_ITS ---
EXAMINATION: MM screening katharina BI w michelle HISTORY: Screening TECHNIQUE: Craniocaudal and mediolateral oblique 3-D tomosynthesis images were obtained and synthetic 2-D images were generated. CAD analysis was submitted and interpreted. COMPARISON: Comparison to multiple prior studies sequentially, with oldest reviewed study dated , 09/24/2017 BREAST PARENCHYMAL COMPOSITION: The breasts are heterogeneously dense, which may obscure small masses. FINDINGS: There is no evidence of suspicious mass, calcification, or architectural distortion to suggest malignancy in either breast. IMPRESSION: 1. No mammographic evidence of malignancy. 2. Recommend routine screening mammography in one year. BI-RADS Category 1: Negative Reviewed, dictated and finalized at location B.
--- OUTSIDE RECORDS SUMMARY | 2025-08-02 14:47 | XMS_ITS | Clinical Summary ---
Author Organization [facility] [address] Address [address] [place] [id number] Care Team Providers Care Gallery Intern Name Role Phone Zelalem Blancas Primary Care Provider + Allergies Active Allergy Reactions Criticality Noted Date Comments Erythromycin Vomiting Low 08/14/2022 Lactose Stomach upset Low 01/28/2023 Tetracycline Vomiting Low 08/14/2022 Medications cetirizine (ZyrTEC) 10 mg tabletIndications: Seasonal Allergic Rhinitis Take 1 tablet (10 mg total) by mouth every morning Active multivit-min/lisa us fumarate (MULTI VITAMIN ORAL)Indications:s upplement Take 1 tablet by mouth every morning Active cholecalciferol (VITAMIN D-3) 2000 unit capsuleIndications :supplement Take 1 capsule (2,000 Units total) by mouth every morning Active psyllium, aspartame, SF (METAMUCIL SF) 3.4 gram packetIndications: constipation Take 1 packet by mouth daily with dinner Active L. acidophilus-dig enz cmb 5 5-250 mg capsuleIndications :stomach Take 2 tablet/capsule by mouth every morning Active diphenhydrAMINE (BENADRYL) 25 mg capsuleIndications :Allergic Rhinitis Take 2 tablet/capsule (50 mg total) by mouth nightly Active me-jkn-T-glutamin- lysine-hb124 1,000-50 mg tablet, effervescentIndica tions:supplement Take 1 tablet by mouth every morning Elderberry airborn Active ibuprofen 200 mg tab/capIndications :Anti-inflammatory Take 2 tablet/capsule (400 mg total) by mouth every 8 (eight) hours as needed for pain Active albuterol HFA (PROVENTIL HFA,VENTOLIN HFA,PROAIR HFA) 90 mcg/actuation inhalerIndications :Acute Asthma Attack Inhale 2 puffs every 6 (six) hours as needed for wheezing Last use 09/2022 for flare up Active ondansetron ODT (ZOFRAN-ODT) 4 mg disintegrating tablet Take 1 tablet (4 mg total) by mouth every 8 (eight) hours as needed for nausea or vomiting 20 tablet 02/27/20 23 Active oxyCODONE (ROXICODONE) 5 mg immediate release tabletIndications: Pain TAKE 1 TABLET EVERY 4-6 HOURS NEEDED FOR PAIN 40 tablet 02/28/20 23 Active Additional Information Patient not taking.Reported on 11/09/2024 famotidine (PEPCID) 10 mg tablet Take 1 tablet (10 mg total) by mouth 2 (two) times a day as needed for heartburn Active docusate sodium (COLACE) 100 mg capsule Take 1 capsule (100 mg total) by mouth 2 (two) times a day 10/14/20 23 Active fluticasone furoate-vilanteroL (BREO ELLIPTA) 200-25 mcg/dose diskus inhaler 10/29/19 24 Active HYDROcodone-acetam inophen (NORCO) 5-325 mg per tablet Take by mouth every 6 (six) hours as needed 10/15/20 23 Active Active Problems Problem Noted Date Diagnosed Date Complete tear of right ACL, subsequent encounter 01/09/2023 Overview (01/09/2023): Added automatically from request for surgery [id number] Acute medial meniscus tear of right knee 023 Overview (01/09/2023): Added automatically from request for surgery [id number] Complex tear of lateral meni scus of right knee as current injury 01/09/2023 Overview (01/09/2023): Added automatically from request for surgery [id number] Immunizations Immunization Administration Dates Next Due Influenza, Quadrivalent, Rec ombinant, Egg Free, Preservative Free, Intramuscular 07/28/2020 Influenza, Quadrivalent, Spl it, Preservative Free, Intramuscular 09/04/2021 Tdap 05/10/2022 Surgical History Surgery Date Site/Laterality Comments FOOT SURGERY 01/18/2004 Bilateral Bunion surgery ESOPHAGOGASTRODUODENOSCOPY polyps removed vocal cords. 2005 or 2007 COLONOSCOPY ENDOMETRIAL ABLATION 10/28/2010 - 10/27/2011 Medical History Medical History Date Comments Asthma Osteoporosis Pneumonia past history Urinary tract infection none rec ent, denies symptoms Family History Medical History Relation Name Comments Arthritis Brother Diabetes Brother Arthritis Father Diabetes Father Heart disease Father Hypertension Father Anesthesia problems Mother unknown issues Arthritis Mother Mental illness Mother Stroke Mother Arthritis Sister Diabetes Sister Relation Name Status Comments Brother Father Mother Sister Social History Tobacco Use Types Packs/Day Years Used Date Smoking Tobacco: Former Cigarettes Q uit: 1992 Smokeless Tobacco: Never Comments:College on[employer] AUDIT-C Answer Date Recorded Q1: How often do you have a drink containing alc ohol? 2-4 times a month 01/28/2023 Q2: How many drinks containi ng alcohol do you have on a typical day when you are drinking? 3 or 4 01/28/2023 Q3: How often do you have si x or more drinks on one occasion? Monthly 01/28/2023 Personal Safety Answer Date Recorded Have you ever been in or are you currently in a harmful physical or emotional relationship or is someone making you feel afraid or unsafe? Denies 02/27/2023 Comments Unknown Sex and Gender Information Value Date Recorded Sex Assigned at Not on file Legal Sex Female 10:34 AM CLAIM REVIEW MEDICAL DIRECTOR Gender Identity Female 03/04/2023 5:08 PM CDT Sexual Orientation Straight 03/04/2023 5: 08 PM CDT Obstetrics History Last Filed Vital Signs Vital Sign Reading Time Taken Comments Blood Pressure 128/82 11/09/2024 7:36 PM CLAIM REVIEW MEDICAL DIRECTOR Pulse 62 11/09/2024 7:36 PM CLAIM REVIEW MEDICAL DIRECTOR Temperature 36.4 C (97.5 F) 11/09/2024 7:36 PM CLAIM REVIEW MEDICAL DIRECTOR Respiratory Rate 24 11/09/2024 7:36 PM CLAIM REVIEW MEDICAL DIRECTOR Oxygen Saturation 99% 11/09/2024 7:36 PM CLAIM REVIEW MEDICAL DIRECTOR Inhaled Oxygen Concentration - - Weight 78.5 kg (173 lb) 11/09/2024 7:36 PM CLAIM REVIEW MEDICAL DIRECTOR Height 167.6 cm (5' 6) 02/27/2023 9:10 AM CDT Body Mass Index 27.92 02/27/2023 9:10 AM CDT Plan of Treatment Health Maintenance Due Date Last Done Comments Breast Cancer Screening-Mammogram 1965 Cervical Cancer Screening 1965 Colon Cancer Screening-Colonoscopy 1965 Depression Screening 1965 Hepatitis C Screening 1965 Hepatitis B Screening 1985 Regular Well Visit/Exam 18-64 1985 Zoster Vaccine (1 of 2) 2017 Covid-19 Vaccine (4 - 2024-2 6 season) 2025 10/24/2021, 01/07/2021, 12/10/2020 Influenza Vaccine (#1) 2025 , 07/28/2020 DTaP/Tdap/Td Vaccine (2 - Td or Tdap) 05/10/2032 05/10/2022 Pneumococcal vaccine <65 Aged Out No longer eligible based on patient's age to complete this topic Medical Devices Implanted Type Area Chief Crna Device Identifier Shelf Expiration Date Model / Serial / Lot [employer] Tightrope Acl Right Device Fixation Titanium Uhmwpe Sterile Latex Free [id number] - [id number] Implanted:Qty: 1 on 02/27/2023 by Sukhdev Lopes MD at [facility] [place] Right: Knee [employer] 08/27/2027 [id number] / / [id number] Allosource 6mm 18-23cm 1 Strand Frozen Graft Soft Tissue Semitendinosus [id number] - [id number] Implanted:Qty: 1 on 02/27/2023 by Sukhdev Lopes MD at [facility] [place] Right: Knee Allosource 2028 [id number] / / [id number] Allosource Allograft Frozen Irradiate Graft Soft Tissue Semitendinosus [id number] - [id number] Implanted:Qty: 1 on 02/27/2023 by Sukhdev Lopes MD at [facility] [place] Right: Knee Allosource 09/25/2027 [id number] / / [id number] [employer] Fastthread 10mm 30mm Knee Screw Interference Biocomposite [id number]-10 - [id number] Implanted:Qty: 1 on 02/27/2023 by Sukhdev Lopes MD at [facility] Right: Tibia [employer] 01/25/2027 [id number]-10 / / [id number] Insurance [facility] [employer] Care Teams Gallery Intern Relationship Specialty Start Date End Date Zelalem Blancas PA [address] [place] [id number] PCP - General Physician [employer] Machinist 08/14/22
--- OUTSIDE RECORDS SUMMARY | 2025-08-02 14:47 | XMS_ITS | Clinical Summary ---
Author Organization [facility] [employer] Address [address] [place] [address] Care Team Providers Care Napping Machine Operator Name Role Phone Fatou Crawford MD Primary Care Provider [phone] Source Comments [facility] [employer],non-owned Affiliates and Associated Physician Practices is amultiple site organization consisting of ambulatory clinics and hospital sitesin [place], [place], [place] and [place]. This disclosure is being madepursuant to the Care Everywhere program and may not contain all information available regarding this patient. Last updated 18.[facility] [employer] Allergies No known active allergies Medications * Be aware that medications may not be up to date on this document. Alwaysverify current medications with the patient. No known medications Social History Tobacco Use Types Packs/Day Years Used Date Smoking Tobacco: Never Smokeless Tobacco: Never Comments No Sex and Gender Information Value Date Recorded Sex Assigned at Not on file Legal Sex Female 10:22 AM [facility] Gender Identity Not on file Sexual Orientation Not on file Last Filed Vital Signs Vital Sign Reading Time Taken Comments Blood Pressure 130/76 12/29/2019 3:44 PM [facility] Pulse 88 12/29/2019 3:44 PM [facility] Temperature 36.8 C (98.2 F) 12/29/2019 3:44 PM [facility] Respiratory Rate 18 12/29/2019 3:44 PM [facility] Oxygen Saturation 96% 12/29/2019 3:44 PM [facility] Inhaled Oxygen Concentration - - Weight 72.6 kg (160 lb) 12/29/2019 3:44 PM [facility] Height 170.2 cm (5' 7) 12/29/2019 3:44 PM [facility] Body Mass Index 25.06 12/29/2019 3:44 PM [facility]ER Plan of Treatment Health Maintenance Due Date Last Done Comments COLOGUARD (AGES 45-75) - COL ON CA SCREENING 1967 COLON MONITORING 1967 COLONOSCOPY - COLON CA SCREENING 1967 CT COLONOGRAPHY - COLON CA SCREENING 1967 Colorectal Cancer Screening 1967 FIT - COLON CA SCREENING 1967 FLEX SIG - COLON CA SCREENING 1967 LIPID TESTING 1967 MAMMOGRAM 1967 HIV SCREENING 1982 HEPATITIS C SCREENING 01/08/1985 DTAP/TDAP/TD VACCINES (1 - Tdap) 1986 HEPATITIS B VACCINE (1 of 3 - 19+ 3-dose series) 1986 PAP SMEAR 01/14/1988 PNEUMOCOCCAL VACCINE 50+ (1 of 1 - PCV) 2017 ZOSTER VACCINE (1 of 2) 2017 SCREENING FOR DIABETES 12/29/2019 DEPRESSION SCREENING 10/28/2024 COVID-19 VACCINE (1 - 2023-2 5 season) 2025 INFLUENZA VACCINE (#1) 2025 HIB VACCINE Aged Out No longer eligi ble based on patient's age to complete this topic HPV VACCINE Aged Out No longer eligi ble based on patient's age to complete this topic MENINGOCOCCAL (Group B) VACC INE SHARED DECISION-MAKING Aged Out No longer eligibl e based on patient's age to complete this topic MENINGOCOCCAL GROUPS A/C/Y/W VACCINE Aged Out No longer eligible b ased on patient's age to complete this topic Insurance [facility] [place] [id number] SELF PAY NO INSURANCE Member Subscriber Plan / Payer (Ef fective for All Dates) Name:Bruec Abad Member ID:Not on file Relation to Subscriber:Not on file Name:BRUCE ABAD Subscriber ID:Not on file (Home) Address: [address] [place] [address] Payer ID:Not on file Group ID:Not on file Type:Self Pay Address: [facility] [place] [id number] [facility] SELF PAY NO INSURANCE Member Subscriber Plan / Payer (Ef fective for All Dates) Name:PolloJennBruce J Member ID:Not on file Relation to Subscriber:Not on file Name:ABADJENNBRUCE Subscriber ID:Not on file Address: [address] [place] [address] Payer ID:Not on file Group ID:Not on file Type:Self Pay Address: [place], [place] [facility] SELF PAY NO INSURANCE Member Subscriber Plan / Payer (Ef fective for All Dates) Name:Bruce Abad Castro Member ID:Not on file Relation to Subscriber:Not on file Name:POLLOJENNBRUCE Subscriber ID:Not on file Address: [address] [place] [address] [place] [address] Payer ID:Not on file Group ID:Not on file Type:Self Pay Address: [place], [place] Care Teams Napping Machine Operator Relationship Specialty Start Date End Date Fatou Crawford MD [address] [place] [address] PCP - General 09/20/21
== END 2025-08-02 13:58 | disposition home or self-care (01) ==
PROVIDERS: PCP Family Medicine; Visit Provider Obstetrics & Gynecology
DX: Z12.31 Encounter for screening mammogram for malignant neoplasm of breast (principal)
CPT/HCPCS: 77063; 77067

== ENCOUNTER 2025-09-01 18:45 | Emergency (ER) | payer OTHER, SELFPAY ==
[2025-09-01 18:52] VITALS: BP 122/79; PULSE 83; RESP 16; TEMP 36.6; O2SAT 99
--- NOTE | 2025-09-01 18:52 | ED.GENADULT ---
HPI - General Adult General Chief complaint: Upper Respiratory Infection Stated complaint: Sinus Infection Symptoms Source: patient Mode of arrival: ambulatory Limitations: no limitations History of Present Illness HPI narrative: Pt is a 60 y/o female presenting with c/o suspected sinus infection. PT reports cold sx began last week and included rhinorrhea, congestion, postnasal drip. States sx have since worsened and now include bodyaches, sinus pressure, and fatigue. No known exposure to COVID, flu, STREP, PNA. 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 No additional complaints. Related Data Home Medications ?Medication ?Instructions ?Recorded ?Confirmed ?Last Taken ?Type calcium carbonate 1,000 mg tablet 600 mg PO BID 09/06/21 09/01/25 04/21/25 History cetirizine 10 mg tablet (Zyrtec) 10 mg PO DAILY 09/06/21 09/01/25 04/21/25 History cholecalciferol (vitamin D3) 100 1,000 mcg PO DAILY 09/06/21 09/01/25 04/21/25 History mcg (4,000 unit) capsule psyllium husk 0.4 gram capsule 0.4 g PO DAILY 05/10/22 09/01/25 04/21/25 History (Metamucil) Lactobacillus 1 cap PO DAILY 10/07/23 09/01/25 04/21/25 History acidophilus-Bifidobac.animalis 2.5 billion cell capsule (Daily Probiotic) diphenhydramine HCl 25 mg capsule 25 mg PO HS PRN Insomnia 10/07/23 09/01/25 10/13/23 History (Benadryl) elderberry fruit 200 mg capsule 200 mg PO DAILY 10/07/23 09/01/25 04/21/25 History valacyclovir 1 gram tablet 2,000 mg PO PRN PRN FEVER BLISTER 10/07/23 09/01/25 Unknown History multivitamin (Daily Multi-Vitamin 1 tablet PO DAILY 08/14/24 09/01/25 04/21/25 History tablet) lysine 500 mg tablet 500 mg PO DAILY 03/10/25 09/01/25 04/21/25 History Allergies Allergy/AdvReac Type Severity Reaction Status Date / Time nickel Allergy Unknown Rash Verified 09/01/25 18:54 erythromycin base AdvReac Intermediate Vomiting Verified 09/01/25 18:54 tetracycline AdvReac Intermediate Vomiting Verified 09/01/25 18:54 Review of Systems Review of Systems: CONSTITUTIONAL: reports body aches, denies fever, chills, or sweats. EYES: Denies visual changes, redness, or discharge. ENT: reports rhinorrhea, congestion, sinus pressure, postnasal drip, denies sore throat, or otalgia. CARDIOVASCULAR: Denies chest pain, palpitations, or edema. RESPIRATORY: Denies cough or dyspnea. GASTROINTESTINAL: Denies abdominal pain, nausea, vomiting, or diarrhea. GENITOURINARY: Denies dysuria or hematuria. SKIN: Denies rash, itching, or wounds. MUSCULOSKELETAL: Denies back pain, joint pain, or myalgia. NEUROLOGIC: Denies headache, numbness, tingling, or weakness. PSYCH: Denies depression or anxiety. All systems reviewed & are unremarkable except as noted in HPI and below PMFSH Past Medical History Medical History PONV (postoperative nausea and vomiting) GERD (gastroesophageal reflux disease) Asthma Herpes simplex labialis Uterine prolapse Mild intermittent asthma Surgical History Surgical History S/P ACL repair february 2023/ acl and meniscus/ r knee S/P sacrocolpopexy (10/14/23) Robotic assisted laparoscopic sacral colpopexy Urethral sling Cystoscopy History of robot-assisted laparoscopic hysterectomy (10/14/23) Robotic assisted supracervical hysterectomy with bilateral salpingectomy.ovaries intact. cervix intact S/P laparoscopic hysterectomy History of bunionectomy History of endometrial ablation Family History Family History Father Diabetes mellitus Family history of hypercholesterolemia Family history of glaucoma Hypertension Family history of cardiovascular disease Sibling Diabetes mellitus Depression Family history of glaucoma Colon polyp Alcoholism Mother Family history of osteoporosis Family history of hypercholesterolemia Family history of mental disorder Cerebrovascular accident Family history of chronic obstructive pulmonary disease Depression Thyroid disorder Grandparent Hypertension Family history of cardiovascular disease Other Asthma Other Family history of bipolar disorder Family history of schizophrenia Social History Social History Social History: Caffeine-coffee daily Smoking end date: 10/28/88 Alcohol intake: current Drinks per week: 6 Alcohol use details: wine-weekends Substance use: never Substance use type: does not use Current Housing: Decline to Answer Concerned About Future Housing: Decline to Answer Difficulty Paying Gas/Electric Bills: Decline to Answer Difficulty Paying for Meds: Decline to Answer Currently Unemployed: Decline to Answer Education: Decline to Answer Difficulty w/ Childcare or Family Care: Decline to Answer Living arrangements: with family Additional living arrangements comments: and daughter Occupation/Education: occupation Additional occupation/education comments: teacher Gender identity (if verbalized by the patient): Female Sexual Orientation (if Verbalized by the Patient): Straight or Heterosexual Spiritual care concerns: No Exam Narrative: GENERAL: Well-appearing, well-nourished, and in no acute distress. HEAD: Normocephalic, atraumatic. EYES: EOMI. No redness or drainage. Conjunctivae normal. ENT: Mucous membranes pink and moist. Nares clear. No rhinorrhea. TMs normal bilaterally. Throat normal. Uvula midline. Ethmoid sinuses are TTP bilaterally without overlying erythema, edema. Moderate amount of clear, postnasal drainage. NECK: Normal AROM. Supple. No lymphadenopathy. CHEST: No respiratory distress. Clear to auscultation. HEART: Regular rate and rhythm. No murmur appreciated. Normal peripheral pulses. SKIN: Warm, dry, no rash. Capillary refill normal. Normal skin turgor. NEURO: No focal deficits. Alert and oriented x3. Gait steady. PSYCH: Normal affect. No signs of depression or anxiety. Course Course Level of Care: Express Care Visit Vital Signs Vital signs: Vital Signs Oxygen Delivery Room Air 09/01/25 18:48 Temperature 98 F 09/01/25 18:52 Pulse Rate 83 09/01/25 18:52 Respiratory Rate 16 09/01/25 18:52 Blood Pressure 122/79 09/01/25 18:52 Pulse Oximetry 99 09/01/25 18:52 Oxygen Delivery Room Air 09/01/25 18:48 Medical Decision Making Vital Signs Vital Signs: Vital Signs Oxygen Delivery Room Air 09/01/25 18:48 Temperature 98 F 09/01/25 18:52 Pulse Rate 83 09/01/25 18:52 Respiratory Rate 16 09/01/25 18:52 Blood Pressure 122/79 09/01/25 18:52 Pulse Oximetry 99 09/01/25 18:52 Oxygen Delivery Room Air 09/01/25 18:48 Lab Data Lab results reviewed: Yes I reviewed the patient's lab results. Labs: Lab Results 09/01/25 09/01/25 Range/Units 19:07 19:08 POC Influenza A Ag Negative (Negative) POC Influenza B Ag Negative (Negative) POC SARS CoV-2 Ag Negative (Negative) Discharge Plan Discharge Clinical Impression: Sinusitis Qualifiers: Sinusitis location: ethmoidal Chronicity: acute Recurrence: non-recurrent Qualified Code(s): J01.20 - Acute ethmoidal sinusitis, unspecified Patient Disposition: Home Condition: Stable Instructions: Antibiotic Form, Sinusitis (ED) Additional Instructions: Go straight to ER should your symptoms become worse or should any new symptoms develop Patient Language: Thai Prescriptions: New amoxicillin-pot clavulanate 875-125 mg tablet 1 tablet PO Q12H 10 Days Qty: 20 0RF prednisone 20 mg tablet 60 mg PO DAILY 5 Days Qty: 15 0RF No Action multivitamin [Daily Multi-Vitamin] Tablet 1 tablet PO DAILY psyllium husk [Metamucil] 0.4 gram capsule 0.4 g PO DAILY lysine 500 mg tablet 500 mg PO DAILY cetirizine [Zyrtec] 10 mg Tablet 10 mg PO DAILY calcium carbonate 1,000 mg Tablet 600 mg PO BID cholecalciferol (vitamin D3) 100 mcg (4,000 unit) Capsule 1,000 mcg PO DAILY Daily Probiotic 2.5 billion cell Capsule 1 cap PO DAILY elderberry fruit 200 mg Capsule 200 mg PO DAILY diphenhydramine HCl [Benadryl] 25 mg Capsule 25 mg PO HS PRN (Reason: Insomnia) valacyclovir 1 gram tablet 2,000 mg PO PRN PRN (Reason: FEVER BLISTER) Rx Instructions: 2 tabs q12h x 2 doses at onset of symptoms albuterol sulfate 90 mcg/actuation HFA aerosol inhaler 2 puff inhalation Q4H PRN (Reason: Shortness Of Breath) Qty: 8.5 5RF triamcinolone acetonide 0.1 % cream 1 applic topical BID Qty: 80 1RF phentermine 15 mg capsule 15 mg PO DAILY Qty: 30 1RF Rx Instructions: must administer 2 hours after breakfast fluticasone furoate-vilanterol [Breo Ellipta] 200-25 mcg/dose blister with device 1 inh INHALATION DAILY PRN (Reason: Shortness Of Breath) Qty: 60 6RF pantoprazole 40 mg tablet,delayed release (DR/EC) See Rx Instructions .ROUTE .COMPLEX Qty: 180 3RF Dose Instruction: TAKE 1 TABLET BY MOUTH 30 MINUTES BEFORE BREAKFAST, AND TAKE 1 TABLET BY MOUTH 30 MINUTES BEFORE DINNER Rx Instructions: TAKE 1 TABLET BY MOUTH 30 MINUTES BEFORE BREAKFAST, AND TAKE 1 TABLET BY MOUTH 30 MINUTES BEFORE DINNER Follow-up/Referrals: Rosa Sheikh MD [Primary Care Provider, Family Practice] - 09/02/25 Time of Disposition: 19:11
[2025-09-01 19:09] LABS: EDCOVIDSCREEN Negative (Negative)
[2025-09-01 19:10] LABS: EDINFLUASCREEN Negative (Negative); EDINFLUBSCREEN Negative (Negative)
== END 2025-09-01 19:19 | disposition home or self-care (01) ==
PROVIDERS: Emergency Provider Registered Nurse; PCP Family Medicine
DX: J01.20 Acute ethmoidal sinusitis, unspecified (principal); Z79.899 Other long term (current) drug therapy; Z20.822 Contact with and (suspected) exposure to COVID-19
CPT/HCPCS: 87426; 87804; 99213; G0463